=== PATIENT | female | born 1965 | race Hispanic/Latino ===

== ENCOUNTER → 2023-11-27 09:50 | Outpatient (CLI) | payer OTHER, SELFPAY ==
--- NOTE | 2023-11-27 09:58 | DI.RAD.S_ITS ---
PROCEDURE: XR HAND RT 2V INDICATIONS: shoulder pain, hand pain TECHNIQUE: 2 views of the hand(s) acquired. COMPARISON: None. FINDINGS: Mild diffuse osseous demineralization. Dysmorphic appearance of the 5th metacarpal in keeping with a prior, healed fracture. No new fracture or dislocation. Mild scattered DIP joint osteoarthritis, most conspicuous at the 1st and 5th digits. IMPRESSION: No acute fracture or dislocation of the right hand. Dictated by: Michoacano Barraza M.D. on 11/27/2023 at 16:26 Approved by: Michoacano Barraza M.D. on 11/27/2023 at 16:28
--- NOTE | 2023-11-27 09:58 | DI.RAD.S_ITS ---
PROCEDURE: XR SHOULDER RT MIN 2V INDICATIONS: shoulder pain, hand pain TECHNIQUE: AP, external rotation, internal rotation, and Y views of the shoulder were acquired. COMPARISON: None. FINDINGS: No fracture or dislocation. Mild glenohumeral and acromioclavicular osteoarthritis. Amorphous calcifications overlying the humeral head greater tuberosity. IMPRESSION: 1. Mild glenohumeral and acromioclavicular osteoarthritis. 2. 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 Dictated by: Michoacano Barraza M.D. on 11/27/2023 at 16:28 Approved by: Michoacano Barraza M.D. on 11/27/2023 at 16:30
== END ==
LOC: RAD 09:56
PROVIDERS: Referring Provider Internal Medicine Cardiovascular Disease; Visit Provider Internal Medicine Cardiovascular Disease
DX: M19.011 Primary osteoarthritis, right shoulder (principal); M19.041 Primary osteoarthritis, right hand; M25.519 Pain in unspecified shoulder; M25.549 Pain in joints of unspecified hand
CPT/HCPCS: 73030; 73120